=== PATIENT | female | born 1935 | race Caucasian/White ===

== ENCOUNTER 2020-11-13 19:02 | Inpatient (IN) ==
[2020-11-13] MEDS ORDERED: Acetaminophen 325 MG TABLET PO PRN (21:26)
[2020-11-13] MEDS ORDERED: Naloxone 0.4 MG/ML INJ IVP PRN (21:26)
[2020-11-13] MEDS ORDERED: Melatonin 3 MG TABLET PO PRN (21:26)
[2020-11-13] MEDS ORDERED: 0.9 % Sodium Chloride 1,000 ML IVC SCH (21:30)
[2020-11-14 05:16] LABS: Hematocrit 37.7 % (35.3-44.9); Hemoglobin 12.4 g/dL (11.5-15.4); Mean Corpuscular HGB Conc 32.9 g/dL (31.6-35.5); Mean Corpuscular Hemoglobin 32.5 pg (28.0-33.3); Mean Corpuscular Volume 98.7 fL (83.0-100.0); Mean Platelet Volume 9.7 fL (9.4-12.4); Platelet Count 243 K/mcL (140-400); Red Blood Count 3.82 M/mcL (3.82-4.97); Red Cell Distribution Width 13.5 % (11.5-14.5)
[2020-11-14 05:23] LABS: INR 2.5; Prothrombin Time 28.1 Seconds (9.4-12.1)
[2020-11-14 05:49] LABS: BUN/Creatinine Ratio 26 (6-26); Blood Urea Nitrogen 17 mg/dL (8-23); Calcium 8.8 mg/dL (8.6-10.3); Carbon Dioxide 24 mEq/L (23-29); Chloride 106 mEq/L (98-107); Glucose 94 mg/dL (70-105); Osmolality,Calculated 289 (280-300); Potassium 4.1 mEq/L (3.5-5.1); Sodium 139 mEq/L (136-145); Troponin I 0.03 ng/mL (< 0.04); eGFR For African Americans > 60 (> 60); eGFR For Non-African Americans > 60 (> 60)
[2020-11-14] MEDS ORDERED: *HR* Warfarin 7.5 MG TABLET PO ONE (18:00)
[2020-11-14] MEDS ORDERED: Warfarin perPT PO PRN (18:00)
[2020-11-14] MEDS ORDERED: *HR* Labetalol 20 MG/4 ML SYRINGE IVP ONE (22:11)
[2020-11-15 01:38] LABS: Hemoglobin 12.4 g/dL (11.5-15.4); Mean Corpuscular HGB Conc 32.6 g/dL (31.6-35.5); Mean Corpuscular Hemoglobin 32.1 pg (28.0-33.3); Mean Corpuscular Volume 98.4 fL (83.0-100.0); Mean Platelet Volume 9.6 fL (9.4-12.4); Platelet Count 220 K/mcL (140-400); Red Blood Count 3.86 M/mcL (3.82-4.97); Red Cell Distribution Width 13.7 % (11.5-14.5)
[2020-11-15 01:46] LABS: INR 1.9
[2020-11-15 02:14] LABS: BUN/Creatinine Ratio 25 (6-26); Blood Urea Nitrogen 17 mg/dL (8-23); Calcium 8.9 mg/dL (8.6-10.3); Carbon Dioxide 22 mEq/L (23-29); Chloride 106 mEq/L (98-107); Glucose 106 mg/dL (70-105); Osmolality,Calculated 286 (280-300); Sodium 137 mEq/L (136-145); eGFR For African Americans > 60 (> 60); eGFR For Non-African Americans > 60 (> 60)
[2020-11-15] MEDS ORDERED: 0.9 % Sodium Chloride 500 ML IVC ONE ×2 (05:00→06:30)
[2020-11-15] MEDS ORDERED: 0.9 % Sodium Chloride 1,000 ML ONE ×2 (05:06→11:13)
[2020-11-15] MEDS: Ascorbic Acid 500 MG TABLET PO SCH (08:02)
[2020-11-15] MEDS: Cholecalciferol (D-3) 1,000 UNIT (25MCG) TABLET PO SCH (08:02)
[2020-11-15] MEDS: Cyanocobalamin (B-12) 1,000 MCG TABLET PO SCH (08:02)
[2020-11-15] MEDS ORDERED: *HR* Metoprolol 5 MG/5 ML VIAL IVP ONE (08:25)
[2020-11-15] MEDS: DilTIAZem 50 MG/50 ML IV.SOLN IVC SCH (10:13)
[2020-11-15] MEDS ORDERED: *HR* Midazolam HCl 2 MG/2 ML VIAL ONE (10:53)
[2020-11-15] MEDS ORDERED: *HR* FentaNYL (PF) 100 MCG/2 ML VIAL ONE (10:53)
[2020-11-15] MEDS ORDERED: 0.9 % Sodium Chloride 500 ML ONE (10:54)
[2020-11-15] MEDS: Metoprolol XL (24 HR) Succ 25 MG TAB.ER.24H PO SCH (13:44)
[2020-11-16] MEDS: DilTIAZem 50 MG/50 ML IV.SOLN IVC SCH (00:15)
[2020-11-16 04:49] LABS: INR 1.4; Prothrombin Time 16.1 Seconds (9.4-12.1)
[2020-11-16] MEDS: Cyanocobalamin (B-12) 1,000 MCG TABLET PO SCH (07:48)
[2020-11-16] MEDS: Ascorbic Acid 500 MG TABLET PO SCH (07:48)
[2020-11-16] MEDS: Cholecalciferol (D-3) 1,000 UNIT (25MCG) TABLET PO SCH (07:48)
[2020-11-16] MEDS: Metoprolol XL (24 HR) Succ 25 MG TAB.ER.24H PO SCH (07:48)
[2020-11-16] MEDS ORDERED: 0.9 % Sodium Chloride 250 ML IVC ONE (09:18)
[2020-11-16 11:49] VITALS: BP 114/44
== END 2020-11-16 12:45 | disposition home or self-care (01) | DRG 244 ==
LOC: 2NENU → SUATTDRO 11-14 15:45
PROVIDERS: ADMIT Internal Medicine; ATTEND Internal Medicine